=== PATIENT | female | born 1990 | race Caucasian/White ===

== ENCOUNTER 2023-01-20 21:36 | Emergency (ER) | payer OTHER ==
[~2023-01-20] VITALS: Ht 162.6 cm; Wt 79.4 kg
[2023-01-20 22:28] VITALS: BP 106/62
[2023-01-20] MEDS ORDERED: IBUPROFEN 600 MG TABLET ONE (22:47)
[2023-01-20] MEDS ORDERED: IBUPROFEN 600 MG TABLET PO ONE (23:00)
== END 2023-01-20 23:42 | disposition home or self-care (01) ==
LOC: ER 21:43
DX: S90.01XA Contusion of right ankle, initial encounter (principal); X58.XXXA Exposure to other specified factors, initial encounter; Y93.89 Activity, other specified; Y92.89 Other specified places as the place of occurrence of the external cause; Y99.8 Other external cause status
CPT/HCPCS: 73610-TC

== ENCOUNTER 2023-09-19 11:55 | Emergency (ER) | payer MEDICAID, OTHER ==
[~2023-09-19] VITALS: Ht 162.6 cm; Wt 80.7 kg
[2023-09-19 12:35] VITALS: BP 115/74; TEMP 98.2; O2SAT 99
== END 2023-09-19 12:35 | disposition left against medical advice (07) ==
LOC: ER 12:05
DX: M54.50 Low back pain, unspecified (principal); E03.9 Hypothyroidism, unspecified

== ENCOUNTER 2025-03-27 21:34 | Emergency (ER) | payer MEDICAID ==
[~2025-03-27] VITALS: Ht 162.6 cm; Wt 65.8 kg
[2025-03-27] MEDS: IV NS 0.9% 500 ML BAG IV ONE (22:27)
[2025-03-27] MEDS: ONDANSETRON HCL/PF 4 MG/2 ML VIAL IVP ONE (22:30)
[2025-03-27] MEDS: KETOROLAC TROMETHAMINE 15 MG/ML VIAL IV ONE (22:30)
[2025-03-27 22:34] LABS: BASOPHILS # (AUTO) 0.1 K/uL (0.0-0.2); BASOPHILS % (AUTO) 0.7 % (0.0-2.0); EOSINOPHILS # (AUTO) 0.1 K/uL (0.0-0.7); EOSINOPHILS % (AUTO) 1.3 % (0.0-6.0); HEMATOCRIT 32 % (33-45); HEMOGLOBIN 10.2 g/dL (11.5-14.8); LYMPHOCYTES # (AUTO) 2.4 K/uL (0.8-4.8); LYMPHOCYTES % (AUTO) 29.8 % (20.0-44.0); MEAN CORPUSCULAR HEMOGLOBIN 24 PG (26.0-33.0); MEAN CORPUSCULAR HGB CONC 32 g/dl (31.0-36.0); MEAN CORPUSCULAR VOLUME 76 fL (82-100); MONOCYTES # (AUTO) 0.6 K/uL (0.1-1.30); MONOCYTES % (AUTO) 7.4 % (2.0-12.0); NEUTROPHILS # (AUTO) 4.8 K/uL (1.8-8.9); NEUTROPHILS % (AUTO) 60.8 % (43.0-81.0); PLATELET COUNT (AUTO) 249 K/uL (150-450); RED BLOOD CELL COUNT(AUTO) 4.23 MIL/uL (4.0-5.2); RED CELL DISTRIBUTION WIDTH 15.1 % (11.5-15.0); WHITE BLOOD COUNT (AUTO) 7.9 K/uL (4.3-11.0)
[2025-03-27 22:46] LABS: PREGNANCY TEST URINE QUAL NEGATIVE (NEGATIVE)
[2025-03-27 22:48] LABS: APPEARANCE,URINE SLIGHTLY CLOUDY (CLEAR); BILIRUBIN,URINE NEGATIVE (NEGATIVE); BLOOD, URINE TRACE-INTA Ery/uL (NEGATIVE); COLOR,URINE YELLOW (YELLOW); KETONES,URINE TRACE mg/dL (NEGATIVE); LEUKOCYTE ESTERASE ,URINE NEGATIVE (NEGATIVE); NITRITE, URINE NEGATIVE (NEGATIVE); PROTEIN,URINE NEGATIVE (NEGATIVE); UGLUCOSE NEGATIVE (NEGATIVE); UROBILINOGEN,URINE 0.2 EU/dL (0.2)
[2025-03-27 22:50] LABS: ALBUMIN 3.1 g/dL (3.4-5.0); BILIRUBIN,TOTAL 0.2 mg/dL (0.2-1.0); CALCIUM, SERUM 9.1 mg/dL (8.5-10.1); CREATININE 0.9 mg/dL (0.6-1.3); POTASSIUM 3.8 mmol/L (3.5-5.1); TOTAL PROTEIN, SERUM 7.5 g/dL (6.4-8.2)
[2025-03-27 22:56] LABS: PARTIAL THROMBOPLASTIN TIME 27.9 SEC (24.3-34.3); PROTHROMBIN TIME 10.6 SECS (9.2-11.1)
[2025-03-27 23:10] LABS: BACTERIA,URINE Many /HPF (None Seen); SQUAMOUS EPITHELIAL CELL,UR Many /HPF (None Seen)
[2025-03-27 23:11] LABS: ADD URINE CULTURE YES
[2025-03-28 00:01] VITALS: BP 112/66; TEMP 98; O2SAT 98
== END 2025-03-28 00:01 | disposition home or self-care (01) ==
LOC: ER 21:37
DX: N83.292 Other ovarian cyst, left side (principal)
CPT/HCPCS: 99284; 96360; 76856; 85025; 80048; 87086; 83690; 80076; 84703; 81001; 36415; 85730; J7040